=== PATIENT | male | born 1985 | race Two or more races ===

== ENCOUNTER 2021-05-11 19:48 | Emergency (ER) | payer OTHER ==
[~2021-05-11] VITALS: Ht 167.6 cm; Wt 80.7 kg
[2021-05-12 01:30] VITALS: BP 132/71
== END 2021-05-12 01:50 ==
LOC: ER 19:48 → EEVIPCON 19:48 → EDBD 19:48 → ER 05-12 01:50
DX: S50.311A Abrasion of right elbow, initial encounter (principal); R51.9 Headache, unspecified; M54.2 Cervicalgia; Y04.8XXA Assault by other bodily force, initial encounter; Y93.89 Activity, other specified; Y92.89 Other specified places as the place of occurrence of the external cause; Y99.8 Other external cause status
CPT/HCPCS: 70450; 71045; 72125; 73070